=== PATIENT | female | born 1990 ===

== ENCOUNTER 2018-04-11 15:37 | Inpatient (IN) | payer MEDICARE, MEDICAID ==
[2018-04-11 15:43] VITALS: BMI 28.1
--- NOTE | 2018-04-11 16:13 | C.PDOC ---
History Of Present Illness 27 y/o F c PMHx DM p/w nausea, NBNB vomiting today. Left insulin at home in [place]. Last insulin was last night. Denies fever, chills, chest pain, dyspnea, diarrhea, dysuria, numbness, motor weakness. Time Seen by Provider: 04/11/18 15:54 Chief Complaint (Nursing): High Blood Sugar Past Medical History Vital Signs: Last Vital Signs Temp 98.4 F 04/11/18 15:41 Pulse 111 H 04/11/18 18:04 Resp 16 04/11/18 18:04 BP 96/44 L 04/11/18 18:04 Pulse Ox 100 04/11/18 18:34 Family History: States: No Known Family Hx - Social History Hx Alcohol Use: No Hx Substance Use: No - Immunization History Hx Tetanus Toxoid Vaccination: No Hx Influenza Vaccination: No Hx Pneumococcal Vaccination: No Review Of Systems Except As Marked, All Systems Reviewed And Found Negative. Constitutional: Negative for: Fever Cardiovascular: Negative for: Chest Pain Physical Exam - Physical Exam Additional Physical Exam Comments: Constitutional: Appears uncomfortable. Head: Normocephalic. Atraumatic. Eyes: PERRL. ENT: Moist mucous membranes. Neck: Supple. Cardiovascular: Tachycardic. Radial pulse 2+ bilaterally. Chest: No tenderness. Respiratory: Clear to auscultation bilaterally. GI: Soft. Nondistended. Diffuse abdominal tenderness without guarding. Back: No CVA tenderness. Musculoskeletal: No tenderness or swelling of extremities. Skin: No rash. Neurologic: Alert, no focal deficit. ED Course And Treatment - Laboratory Results Result Diagrams: 04/11/18 16:26 04/11/18 16:26 O2 Sat by Pulse Oximetry: 100 Critical Care Time - Critical Care Note Total Time (in mins): 60 Comments: Required complex decision making and ICU consultation. Documented critical care: time excludes all time spent performing seperately billable procedures. Medical Decision Making Medical Decision Making: IVF, Zofran, labs, urine, ketones CXR no acute disease. EKG Sinus rhythm, 111 bpm, no ST/T wave changes. Found to be in DKA, IVF rescus, insulin drip, Dr. Bains accepts to ICU. Disposition - Disposition Disposition: HOSPITALIZED Disposition Time: 18:30 Condition: CRITICAL Forms: [facility] ([place]) - Clinical Impression Clinical Impression: DKA (diabetic ketoacidoses)
[2018-04-11] MEDS ORDERED: Sodium Chloride 0.9% 1,000 ML IV STA ×2 (16:15→16:51)
[2018-04-11 16:30] LABS: BASO # 0.1 K/uL (0.0-0.2); BASO % 0.8 % (0.0-2.0); HEMOGLOBIN 14.9 g/dL (11.0-16.0); LYMPH % 7.5 % (20.0-40.0); MEAN CELL VOLUME 91.5 fL (81.0-99.0); MEAN CORPUSCULAR HEMOGLOBIN 30.2 pg (27.0-31.0); MEAN CORPUSCULAR HGB CONC 33.1 g/dL (33.0-37.0); MEAN PLATELET VOLUME 9.3 fL (7.2-11.7); MONO # 0.3 K/uL (0.0-0.8); NEUT # 11.6 K/uL (1.8-7.0); NEUT % 89.7 % (50.0-75.0); PLATELET COUNT 356 K/uL (130-400); RBC 4.94 Mil/uL (3.80-5.20); RED CELL DISTRIBUTION WIDTH 12.8 % (11.5-14.5); WHITE BLOOD COUNT 12.9 K/uL (4.8-10.8)
[2018-04-11 16:34] LABS: VENOUS BLOOD GAS BASE EXCESS -8.5 mmol/L (0.0-2.0); VENOUS BLOOD GAS PCO2 25 mmHg (40-60); VENOUS BLOOD GAS PO2 44 mm/Hg (30-55); VENOUS BLOOD PH 7.38 (7.32-7.43)
[2018-04-11] MEDS ORDERED: Sodium Chloride 0.9% 1,000 ML ONE (16:37)
[2018-04-11 16:43] LABS: SQUAMOUS EPITHIAL 9 /hpf (0-5); URINE BILIRUBIN NEGATIVE (NEGATIVE); URINE BLOOD NEGATIVE (NEGATIVE); URINE CLARITY Hazy (Clear); URINE COLOR Yellow (YELLOW); URINE GLUCOSE (UA) 3+ mg/dL (Normal); URINE LEUKOCYTE ESTERASE NEG Leu/uL (Negative); URINE PROTEIN NEGATIVE (NEGATIVE); URINE UROBILINOGEN NORMAL mg/dL (0.2-1.0)
[2018-04-11 16:44] LABS: HCG,QUALITATIVE URINE NEGATIVE (NEGATIVE)
[2018-04-11 16:51] LABS: ALB/GLOB RATIO 1.4 (1.0-2.1); ALBUMIN 4.7 g/dL (3.5-5.0); ALT/SGPT 21 U/L (9-52); AST/SGOT 25 U/L (14-36); BLOOD UREA NITROGEN 18 mg/dL (7-17); CALCIUM 9.7 mg/dl (8.6-10.4); GFR AFRICAN-AMERICAN > 60; GFR NON-AFRICAN AMERICAN > 60; LIPASE 36 U/L (23-300)
[2018-04-11] MEDS ORDERED: Insulin Human Regular 100 UNIT in Sodium Chloride 0.9% 99 ML IV SCH ×2 (17:00→19:00)
[2018-04-11 17:03] LABS: LYMPHOCYTE 6 % (20-40); MONOCYTE 1 % (0-10); NEUTROPHIL 93 % (50-75); PLATELET ESTIMATE NORMAL (NORMAL); TOTAL CELLS COUNTED 100
[2018-04-11] MEDS ORDERED: Sodium Chloride 0.9% 1,000 ML IV ONE (18:19)
--- NOTE | 2018-04-11 18:31 | RAD ---
Date of service: 04/11/2018 HISTORY: nausea, vomiting COMPARISON: No prior. FINDINGS: LUNGS: No active pulmonary disease. PLEURA: No significant pleural effusion identified, no pneumothorax apparent. CARDIOVASCULAR: Normal. OSSEOUS STRUCTURES: No significant abnormalities. VISUALIZED UPPER ABDOMEN: Normal. OTHER FINDINGS: None. IMPRESSION: No active disease.
--- NOTE | 2018-04-11 20:31 | CP.PCM.HP ---
<EstevanEstela L. - Last Filed: 04/12/18 01:49> History of Present Illness - History of Present Illness History of Present Illness: CC: nausea, vomiting HPI: Patient is a 27 year old female with PMHx of Type 1 Diabetes presents to the ER after 3 episodes of nausea and vomiting. Patient lives in [place] and came in town to visit her grandmother yesterday. Patient forgot to refill her Novolog Insulin Pump and ran out last night. This morning patient called multiple pharmacies to get it refilled, but by the time she was able to get the medication she was feeling dizzy and started vomiting. Patient has been admitted for DKA many times before and knew she needed to come to the ER. Patient was last admitted for DKA in August. Patient vomited once in the ED. Patient said the vomit was watery and yellow. Patient had some mild epigastric pain which has now resolved. Patient's dizziness has also resolved. Patient denies any fevers, headache, chest pain, shortness of breath, diarrhea, or constipation. Patient has had no sick contacts. PMD: in [place] PMHx: Diabetes Type 1 Psur c-sections in 2008, 2012 Famhx: Mom- Lupus, migraine; Son: asthma, Daughter: spina bifida, cauda regression syndrome Social: denies tobacco, alcohol, drugs. lives with kids and boyfriend in [place]. Stay at home mom Present on Admission - Present on Admission Any Indicators Present on Admission: No History of DVT/PE: No History of Uncontrolled Diabetes: No Urinary Catheter: No Decubitus Ulcer Present: No Review of Systems - Constitutional Constitutional: absent: Chills, Fever - EENT Eyes: absent: Blurred Vision - Cardiovascular Cardiovascular: absent: Chest Pain, Dyspnea, Edema, Palpitations - Respiratory Respiratory: absent: Dyspnea - Gastrointestinal Gastrointestinal: Abdominal Pain, Nausea, Vomiting. absent: Constipation, Diarrhea - Genitourinary Genitourinary: absent: Change in Urinary Stream - Psychiatric Psychiatric: absent: Confusion Past Patient History - Past Social History Smoking Status: Never Smoked - ENDOCRINE/METABOLIC Hx Diabetes Mellitus Type 1: Yes Other/Comment: insulin pump - PSYCHIATRIC Hx Substance Use: No - SURGICAL HISTORY Hx Section: Yes (x2) Meds Allergies/Adverse Reactions: Allergies Allergy/AdvReac Type Severity Reaction Status Date / Time fluconazole [From Diflucan] Allergy Verified 04/11/18 15:42 metoclopramide [From Reglan] Allergy Verified 04/11/18 15:42 morphine Allergy Verified 04/11/18 15:42 Penicillins Allergy Verified 04/11/18 15:42 Physical Exam - Constitutional Appears: Non-toxic, No Acute Distress - Head Exam Head Exam: ATRAUMATIC, NORMAL INSPECTION, NORMOCEPHALIC - Eye Exam Eye Exam: EOMI, Normal appearance - ENT Exam ENT Exam: Mucous Membranes Moist - Respiratory Exam Respiratory Exam: Clear to Auscultation Bilateral, NORMAL BREATHING PATTERN - Cardiovascular Exam Cardiovascular Exam: Tachycardia, +S1, +S2 - GI/Abdominal Exam GI & Abdominal Exam: Normal Bowel Sounds, Soft. absent: Tenderness - Extremities Exam Extremities exam: Positive for: normal inspection. Negative for: pedal edema, tenderness - Neurological Exam Neurological exam: Alert, Oriented x3 - Psychiatric Exam Psychiatric exam: Normal Affect, Normal Mood - Skin Skin Exam: Intact, Normal Color, Warm Results - Vital Signs Recent Vital Signs: Last Vital Signs Temp 98.4 F 04/11/18 15:41 Pulse 106 H 04/11/18 18:42 Resp 16 04/11/18 18:42 BP 100/56 L 04/11/18 18:42 Pulse Ox 100 04/11/18 18:43 - Labs Result Diagrams: 04/11/18 16:26 04/11/18 21:53 Labs: Laboratory Results - last 24 hr 04/11/18 04/11/18 04/11/18 15:47 16:26 16:26 WBC 12.9 H RBC 4.94 Hgb 14.9 Hct 45.2 MCV 91.5 MCH 30.2 MCHC 33.1 RDW 12.8 Plt Count 356 MPV 9.3 Neut % (Auto) 89.7 H Lymph % (Auto) 7.5 L Josephine % (Auto) 2.0 Eos % (Auto) 0.0 Baso % (Auto) 0.8 Neut # (Auto) 11.6 H Lymph # (Auto) 1.0 Josephine # (Auto) 0.3 Eos # (Auto) 0.0 Baso # (Auto) 0.1 Neutrophils % (Manual) 93 H Lymphocytes % (Manual) 6 L Monocytes % (Manual) 1 Platelet Estimate Normal pO2 VBG pH VBG pCO2 VBG HCO3 VBG Total CO2 VBG O2 Sat (Calc) VBG Base Excess VBG Potassium Glucose Lactate Sodium Potassium Chloride Carbon Dioxide Anion Gap BUN Creatinine Est GFR ( Amer) Est GFR (Non-Af Amer) POC Glucose (mg/dL) 324 H Random Glucose Calcium Phosphorus Magnesium Total Bilirubin AST ALT Alkaline Phosphatase Total Protein Albumin Globulin Albumin/Globulin Ratio Lipase Venous Blood Potassium Urine Color Yellow Urine Clarity Hazy Urine pH 5.0 Ur Specific [place] 1.025 Urine Protein Negative Urine Glucose (UA) 3+ H Urine Ketones 2+ H Urine Blood Negative Urine Nitrate Negative Urine Bilirubin Negative Urine Urobilinogen Normal Ur Leukocyte Esterase Neg Urine WBC (Auto) 2 Urine RBC (Auto) 1 Ur Squamous Epith Cells 9 H Urine HCG, Qual Negative B-Hydroxybutyrate 04/11/18 04/11/18 04/11/18 16:26 16:31 17:29 WBC RBC Hgb Hct MCV MCH MCHC RDW Plt Count MPV Neut % (Auto) Lymph % (Auto) Josephine % (Auto) Eos % (Auto) Baso % (Auto) Neut # (Auto) Lymph # (Auto) Josephine # (Auto) Eos # (Auto) Baso # (Auto) Neutrophils % (Manual) Lymphocytes % (Manual) Monocytes % (Manual) Platelet Estimate pO2 44 VBG pH 7.38 VBG pCO2 25 L VBG HCO3 17.8 VBG Total CO2 15.6 L VBG O2 Sat (Calc) 82.1 H VBG Base Excess -8.5 L VBG Potassium 4.5 Glucose 384 H Lactate 2.9 H Sodium 139 138.0 Potassium 4.9 Chloride 104 102.0 Carbon Dioxide 11 L* Anion Gap 30 H BUN 18 H Creatinine 0.9 Est GFR ( Amer) > 60 Est GFR (Non-Af Amer) > 60 POC Glucose (mg/dL) 397 H Random Glucose 376 H Calcium 9.7 Phosphorus 3.9 Magnesium 2.0 Total Bilirubin 1.6 H AST 25 ALT 21 Alkaline Phosphatase 100 Total Protein 8.2 Albumin 4.7 Globulin 3.4 Albumin/Globulin Ratio 1.4 Lipase 36 Venous Blood Potassium 4.5 Urine Color Urine Clarity Urine pH Ur Specific [place] Urine Protein Urine Glucose (UA) Urine Ketones Urine Blood Urine Nitrate Urine Bilirubin Urine Urobilinogen Ur Leukocyte Esterase Urine WBC (Auto) Urine RBC (Auto) Ur Squamous Epith Cells Urine HCG, Qual B-Hydroxybutyrate 4.10 H 04/11/18 04/11/18 18:30 19:46 WBC RBC Hgb Hct MCV MCH MCHC RDW Plt Count MPV Neut % (Auto) Lymph % (Auto) Josephine % (Auto) Eos % (Auto) Baso % (Auto) Neut # (Auto) Lymph # (Auto) Josephine # (Auto) Eos # (Auto) Baso # (Auto) Neutrophils % (Manual) Lymphocytes % (Manual) Monocytes % (Manual) Platelet Estimate pO2 VBG pH VBG pCO2 VBG HCO3 VBG Total CO2 VBG O2 Sat (Calc) VBG Base Excess VBG Potassium Glucose Lactate Sodium Potassium Chloride Carbon Dioxide Anion Gap BUN Creatinine Est GFR ( Amer) Est GFR (Non-Af Amer) POC Glucose (mg/dL) 296 H 211 H Random Glucose Calcium Phosphorus Magnesium Total Bilirubin AST ALT Alkaline Phosphatase Total Protein Albumin Globulin Albumin/Globulin Ratio Lipase Venous Blood Potassium Urine Color Urine Clarity Urine pH Ur Specific [place] Urine Protein Urine Glucose (UA) Urine Ketones Urine Blood Urine Nitrate Urine Bilirubin Urine Urobilinogen Ur Leukocyte Esterase Urine WBC (Auto) Urine RBC (Auto) Ur Squamous Epith Cells Urine HCG, Qual B-Hydroxybutyrate Assessment & Plan - Assessment and Plan (Free Text) Assessment: DKA admitted to ICU on arrival to ED: Blood sugar: 324 Bicarb: 11 Ketones: 4.10 VBG: pH: 7.38, bicarb 25, Glucose 384, lactate 2.9 UA: 3+ glucose, 2+ ketones repeat VBG and BMP q4h accuchecks q1h meds: Insulin Drip and NS @ 200 cc/hr Blood sugar decreased to 170, NS switched to D5 NS at 200cc/hr Patient's blood sugar decreased to 102 Insulin drip and D5 1/2 NS stopped, insulin pump restarted with basal rate of 1.6 u per hour Prophylaxis SCDs CLD Discussed with Dr. Guidry <Brian Guidry P - Last Filed: 04/12/18 04:30> Results - Vital Signs Recent Vital Signs: Last Vital Signs Temp 98 F 04/12/18 04:00 Pulse 89 04/12/18 04:00 Resp 17 04/12/18 04:00 BP 84/27 L 04/12/18 03:56 Pulse Ox 97 04/12/18 04:00 - Labs Result Diagrams: 04/11/18 16:26 04/12/18 02:02 Labs: Laboratory Results - last 24 hr 04/11/18 04/11/18 04/11/18 15:47 16:26 16:26 WBC 12.9 H RBC 4.94 Hgb 14.9 Hct 45.2 MCV 91.5 MCH 30.2 MCHC 33.1 RDW 12.8 Plt Count 356 MPV 9.3 Neut % (Auto) 89.7 H Lymph % (Auto) 7.5 L Josephine % (Auto) 2.0 Eos % (Auto) 0.0 Baso % (Auto) 0.8 Neut # (Auto) 11.6 H Lymph # (Auto) 1.0 Josephine # (Auto) 0.3 Eos # (Auto) 0.0 Baso # (Auto) 0.1 Neutrophils % (Manual) 93 H Lymphocytes % (Manual) 6 L Monocytes % (Manual) 1 Platelet Estimate Normal pO2 VBG pH VBG pCO2 VBG HCO3 VBG Total CO2 VBG O2 Sat (Calc) VBG Base Excess VBG Potassium Glucose Lactate Sodium Potassium Chloride Carbon Dioxide Anion Gap BUN Creatinine Est GFR ( Amer) Est GFR (Non-Af Amer) POC Glucose (mg/dL) 324 H Random Glucose Calcium Phosphorus Magnesium Total Bilirubin AST ALT Alkaline Phosphatase Total Protein Albumin Globulin Albumin/Globulin Ratio Lipase Venous Blood Potassium Urine Color Yellow Urine Clarity Hazy Urine pH 5.0 Ur Specific [place] 1.025 Urine Protein Negative Urine Glucose (UA) 3+ H Urine Ketones 2+ H Urine Blood Negative Urine Nitrate Negative Urine Bilirubin Negative Urine Urobilinogen Normal Ur Leukocyte Esterase Neg Urine WBC (Auto) 2 Urine RBC (Auto) 1 Ur Squamous Epith Cells 9 H Urine HCG, Qual Negative B-Hydroxybutyrate 04/11/18 04/11/18 04/11/18 16:26 16:31 17:29 WBC RBC Hgb Hct MCV MCH MCHC RDW Plt Count MPV Neut % (Auto) Lymph % (Auto) Josephine % (Auto) Eos % (Auto) Baso % (Auto) Neut # (Auto) Lymph # (Auto) Josephine # (Auto) Eos # (Auto) Baso # (Auto) Neutrophils % (Manual) Lymphocytes % (Manual) Monocytes % (Manual) Platelet Estimate pO2 44 VBG pH 7.38 VBG pCO2 25 L VBG HCO3 17.8 VBG Total CO2 15.6 L VBG O2 Sat (Calc) 82.1 H VBG Base Excess -8.5 L VBG Potassium 4.5 Glucose 384 H Lactate 2.9 H Sodium 139 138.0 Potassium 4.9 Chloride 104 102.0 Carbon Dioxide 11 L* Anion Gap 30 H BUN 18 H Creatinine 0.9 Est GFR ( Amer) > 60 Est GFR (Non-Af Amer) > 60 POC Glucose (mg/dL) 397 H Random Glucose 376 H Calcium 9.7 Phosphorus 3.9 Magnesium 2.0 Total Bilirubin 1.6 H AST 25 ALT 21 Alkaline Phosphatase 100 Total Protein 8.2 Albumin 4.7 Globulin 3.4 Albumin/Globulin Ratio 1.4 Lipase 36 Venous Blood Potassium 4.5 Urine Color Urine Clarity Urine pH Ur Specific [place] Urine Protein Urine Glucose (UA) Urine Ketones Urine Blood Urine Nitrate Urine Bilirubin Urine Urobilinogen Ur Leukocyte Esterase Urine WBC (Auto) Urine RBC (Auto) Ur Squamous Epith Cells Urine HCG, Qual B-Hydroxybutyrate 4.10 H 04/11/18 04/11/18 04/11/18 18:30 19:46 20:41 WBC RBC Hgb Hct MCV MCH MCHC RDW Plt Count MPV Neut % (Auto) Lymph % (Auto) Josephine % (Auto) Eos % (Auto) Baso % (Auto) Neut # (Auto) Lymph # (Auto) Josephine # (Auto) Eos # (Auto) Baso # (Auto) Neutrophils % (Manual) Lymphocytes % (Manual) Monocytes % (Manual) Platelet Estimate pO2 VBG pH VBG pCO2 VBG HCO3 VBG Total CO2 VBG O2 Sat (Calc) VBG Base Excess VBG Potassium Glucose Lactate Sodium Potassium Chloride Carbon Dioxide Anion Gap BUN Creatinine Est GFR ( Amer) Est GFR (Non-Af Amer) POC Glucose (mg/dL) 296 H 211 H 170 H Random Glucose Calcium Phosphorus Magnesium Total Bilirubin AST ALT Alkaline Phosphatase Total Protein Albumin Globulin Albumin/Globulin Ratio Lipase Venous Blood Potassium Urine Color Urine Clarity Urine pH Ur Specific [place] Urine Protein Urine Glucose (UA) Urine Ketones Urine Blood Urine Nitrate Urine Bilirubin Urine Urobilinogen Ur Leukocyte Esterase Urine WBC (Auto) Urine RBC (Auto) Ur Squamous Epith Cells Urine HCG, Qual B-Hydroxybutyrate 04/11/18 04/11/18 04/11/18 21:49 21:53 21:55 WBC RBC Hgb Hct MCV MCH MCHC RDW Plt Count MPV Neut % (Auto) Lymph % (Auto) Josephine % (Auto) Eos % (Auto) Baso % (Auto) Neut # (Auto) Lymph # (Auto) Josephine # (Auto) Eos # (Auto) Baso # (Auto) Neutrophils % (Manual) Lymphocytes % (Manual) Monocytes % (Manual) Platelet Estimate pO2 27 L VBG pH 7.27 L VBG pCO2 33 L VBG HCO3 15.1 VBG Total CO2 16.2 L VBG O2 Sat (Calc) 55.2 VBG Base Excess -10.6 L VBG Potassium 4.1 Glucose 168 H Lactate 1.2 Sodium 141 139.0 Potassium 4.1 Chloride 114 H 112.0 H Carbon Dioxide 13 L Anion Gap 18 BUN 17 Creatinine 0.7 Est GFR ( Amer) > 60 Est GFR (Non-Af Amer) > 60 POC Glucose (mg/dL) 102 Random Glucose 167 H Calcium 7.1 L Phosphorus Magnesium Total Bilirubin AST ALT Alkaline Phosphatase Total Protein Albumin Globulin Albumin/Globulin Ratio Lipase Venous Blood Potassium 4.1 Urine Color Urine Clarity Urine pH Ur Specific [place] Urine Protein Urine Glucose (UA) Urine Ketones Urine Blood Urine Nitrate Urine Bilirubin Urine Urobilinogen Ur Leukocyte Esterase Urine WBC (Auto) Urine RBC (Auto) Ur Squamous Epith Cells Urine HCG, Qual B-Hydroxybutyrate 04/12/18 04/12/18 04/12/18 00:14 01:42 01:58 WBC RBC Hgb Hct MCV MCH MCHC RDW Plt Count MPV Neut % (Auto) Lymph % (Auto) Josephine % (Auto) Eos % (Auto) Baso % (Auto) Neut # (Auto) Lymph # (Auto) Josephine # (Auto) Eos # (Auto) Baso # (Auto) Neutrophils % (Manual) Lymphocytes % (Manual) Monocytes % (Manual) Platelet Estimate pO2 51 VBG pH 7.27 L VBG pCO2 26 L VBG HCO3 14.1 VBG Total CO2 12.7 L VBG O2 Sat (Calc) 85.9 H VBG Base Excess -13.3 L VBG Potassium 3.9 Glucose 324 H Lactate 1.3 Sodium 139.0 Potassium Chloride 111.0 H Carbon Dioxide Anion Gap BUN Creatinine Est GFR ( Amer) Est GFR (Non-Af Amer) POC Glucose (mg/dL) 286 H 219 H Random Glucose Calcium Phosphorus Magnesium Total Bilirubin AST ALT Alkaline Phosphatase Total Protein Albumin Globulin Albumin/Globulin Ratio Lipase Venous Blood Potassium 3.9 Urine Color Urine Clarity Urine pH Ur Specific [place] Urine Protein Urine Glucose (UA) Urine Ketones Urine Blood Urine Nitrate Urine Bilirubin Urine Urobilinogen Ur Leukocyte Esterase Urine WBC (Auto) Urine RBC (Auto) Ur Squamous Epith Cells Urine HCG, Qual B-Hydroxybutyrate 04/12/18 02:02 WBC RBC Hgb Hct MCV MCH MCHC RDW Plt Count MPV Neut % (Auto) Lymph % (Auto) Josephine % (Auto) Eos % (Auto) Baso % (Auto) Neut # (Auto) Lymph # (Auto) Josephine # (Auto) Eos # (Auto) Baso # (Auto) Neutrophils % (Manual) Lymphocytes % (Manual) Monocytes % (Manual) Platelet Estimate pO2 VBG pH VBG pCO2 VBG HCO3 VBG Total CO2 VBG O2 Sat (Calc) VBG Base Excess VBG Potassium Glucose Lactate Sodium 139 Potassium 4.9 Chloride 110 H Carbon Dioxide 12 L Anion Gap 22 H BUN 16 Creatinine 0.8 Est GFR ( Amer) > 60 Est GFR (Non-Af Amer) > 60 POC Glucose (mg/dL) Random Glucose 236 H Calcium 7.8 L Phosphorus Magnesium Total Bilirubin AST ALT Alkaline Phosphatase Total Protein Albumin Globulin Albumin/Globulin Ratio Lipase Venous Blood Potassium Urine Color Urine Clarity Urine pH Ur Specific [place] Urine Protein Urine Glucose (UA) Urine Ketones Urine Blood Urine Nitrate Urine Bilirubin Urine Urobilinogen Ur Leukocyte Esterase Urine WBC (Auto) Urine RBC (Auto) Ur Squamous Epith Cells Urine HCG, Qual B-Hydroxybutyrate Attending/Attestation - Attestation I have personally seen and examined this patient.: Yes I have fully participated in the care of the patient.: Yes I have reviewed all pertinent clinical information: Yes Notes (Text): 04/12/18 04:28 Precipitation of early DKA due to inability to timely refill insulin pump with correction of AG, still low bicarb probably from saline boluses, restarted insulin pump with accucheck every 2 hr and am labs to confirm maintained correction, patient clinically not struggling to maintain ph, which has normalized.
[2018-04-11] MEDS ORDERED: Dextrose 5%/0.9% NS 1,000 ML IV SCH (21:30)
--- NOTE | 2018-04-11 21:37 | CP.PCM.CON ---
<Estela Barreto - Last Filed: 04/12/18 01:50> History of Present Illness - History of Present Illness History of Present Illness: PGY2 ICU Consult Note for Dr. Patino CC: nausea, vomiting HPI: Patient is a 27 year old female with PMHx of Type 1 Diabetes presents to the ER after 3 episodes of nausea and vomiting. Patient lives in [place] and came in town to visit her grandmother yesterday. Patient forgot to refill her Novolog Insulin Pump and ran out last night. This morning patient called multiple pharmacies to get it refilled, but by the time she was able to get the medication she was feeling dizzy and started vomiting. Patient has been admitted for DKA many times before and knew she needed to come to the ER. Patient was last admitted for DKA in August. Patient vomited once in the ED. Patient said the vomit was watery and yellow. Patient had some mild epigastric pain which has now resolved. Patient's dizziness has also resolved. Patient denies any fevers, headache, chest pain, shortness of breath, diarrhea, or constipation. Patient has had no sick contacts. PMD: in [place] PMHx: Diabetes Type 1 Psur c-sections in 2008, 2012 Famhx: Mom- Lupus, migraine; Son: asthma, Daughter: spina bifida, cauda regression syndrome Social: denies tobacco, alcohol, drugs. lives with kids and boyfriend in [place]. Stay at home mom Review of Systems - Constitutional Constitutional: absent: Chills, Fever - EENT Eyes: absent: Blurred Vision - Cardiovascular Cardiovascular: absent: Chest Pain, Dyspnea - Respiratory Respiratory: absent: Dyspnea - Gastrointestinal Gastrointestinal: Abdominal Pain, Nausea, Vomiting. absent: Constipation, Diarrhea - Genitourinary Genitourinary: absent: Dysuria - Musculoskeletal Musculoskeletal: absent: Numbness, Tingling - Integumentary Integumentary: absent: Rash Past Patient History - Past Social History Smoking Status: Never Smoked - ENDOCRINE/METABOLIC Hx Diabetes Mellitus Type 1: Yes Other/Comment: insulin pump - PSYCHIATRIC Hx Substance Use: No - SURGICAL HISTORY Hx Section: Yes (x2) Meds Allergies/Adverse Reactions: Allergies Allergy/AdvReac Type Severity Reaction Status Date / Time fluconazole [From Diflucan] Allergy Verified 04/11/18 15:42 metoclopramide [From Reglan] Allergy Verified 04/11/18 15:42 morphine Allergy Verified 04/11/18 15:42 Penicillins Allergy Verified 04/11/18 15:42 - Medications Medications: Current Medications Sodium Chloride (Sodium Chloride 0.9%) 1,000 mls @ 200 mls/hr IV .Q5H ONE Stop: 04/11/18 23:18 Last Admin: 04/11/18 18:36 Dose: 200 mls/hr Insulin Human Regular 100 unit (/ Sodium Chloride) 100 mls @ 6 mls/hr IV .[id number] [facility] PRN Reason: Protocol Last Titration: 04/11/18 21:18 Dose: 4 units/hr, 4 mls/hr Dextrose/Sodium Chloride (Dextrose 5%/0.9% Ns 1000 Ml) 1,000 mls @ 200 mls/hr IV .Q5H [facility] Last Admin: 04/11/18 21:26 Dose: 200 mls/hr Physical Exam - Head Exam Head Exam: ATRAUMATIC, NORMAL INSPECTION, NORMOCEPHALIC - Eye Exam Eye Exam: EOMI, Normal appearance - Respiratory Exam Respiratory Exam: Clear to Auscultation Bilateral, NORMAL BREATHING PATTERN. absent: Rales, Rhonchi, Wheezes - Cardiovascular Exam Cardiovascular Exam: Tachycardia, +S1, +S2 - GI/Abdominal Exam GI & Abdominal Exam: Normal Bowel Sounds, Soft. absent: Tenderness - Extremities Exam Extremities exam: Positive for: normal inspection. Negative for: tenderness - Back Exam Back exam: NORMAL INSPECTION - Neurological Exam Neurological exam: Alert, CN II-XII Intact, Oriented x3 Results - Vital Signs Recent Vital Signs: Last Vital Signs Temp 98.4 F 04/11/18 15:41 Pulse 106 H 04/11/18 18:42 Resp 16 04/11/18 18:42 BP 100/56 L 04/11/18 18:42 Pulse Ox 100 04/11/18 18:43 - Labs Result Diagrams: 04/11/18 16:26 04/11/18 21:53 Labs: Laboratory Results - last 24 hr 04/11/18 04/11/18 04/11/18 15:47 16:26 16:26 WBC 12.9 H RBC 4.94 Hgb 14.9 Hct 45.2 MCV 91.5 MCH 30.2 MCHC 33.1 RDW 12.8 Plt Count 356 MPV 9.3 Neut % (Auto) 89.7 H Lymph % (Auto) 7.5 L [place] % (Auto) 2.0 Eos % (Auto) 0.0 Baso % (Auto) 0.8 Neut # (Auto) 11.6 H Lymph # (Auto) 1.0 [place] # (Auto) 0.3 Eos # (Auto) 0.0 Baso # (Auto) 0.1 Neutrophils % (Manual) 93 H Lymphocytes % (Manual) 6 L Monocytes % (Manual) 1 Platelet Estimate Normal pO2 VBG pH VBG pCO2 VBG HCO3 VBG Total CO2 VBG O2 Sat (Calc) VBG Base Excess VBG Potassium Glucose Lactate Sodium Potassium Chloride Carbon Dioxide Anion Gap BUN Creatinine Est GFR ( Amer) Est GFR (Non-Af Amer) POC Glucose (mg/dL) 324 H Random Glucose Calcium Phosphorus Magnesium Total Bilirubin AST ALT Alkaline Phosphatase Total Protein Albumin Globulin Albumin/Globulin Ratio Lipase Venous Blood Potassium Urine Color Yellow Urine Clarity Hazy Urine pH 5.0 Ur Specific [employer] 1.025 Urine Protein Negative Urine Glucose (UA) 3+ H Urine Ketones 2+ H Urine Blood Negative Urine Nitrate Negative Urine Bilirubin Negative Urine Urobilinogen Normal Ur Leukocyte Esterase Neg Urine WBC (Auto) 2 Urine RBC (Auto) 1 Ur Squamous Epith Cells 9 H Urine HCG, Qual Negative B-Hydroxybutyrate 04/11/18 04/11/18 04/11/18 16:26 16:31 17:29 WBC RBC Hgb Hct MCV MCH MCHC RDW Plt Count MPV Neut % (Auto) Lymph % (Auto) [place] % (Auto) Eos % (Auto) Baso % (Auto) Neut # (Auto) Lymph # (Auto) [place] # (Auto) Eos # (Auto) Baso # (Auto) Neutrophils % (Manual) Lymphocytes % (Manual) Monocytes % (Manual) Platelet Estimate pO2 44 VBG pH 7.38 VBG pCO2 25 L VBG HCO3 17.8 VBG Total CO2 15.6 L VBG O2 Sat (Calc) 82.1 H VBG Base Excess -8.5 L VBG Potassium 4.5 Glucose 384 H Lactate 2.9 H Sodium 139 138.0 Potassium 4.9 Chloride 104 102.0 Carbon Dioxide 11 L* Anion Gap 30 H BUN 18 H Creatinine 0.9 Est GFR ( Amer) > 60 Est GFR (Non-Af Amer) > 60 POC Glucose (mg/dL) 397 H Random Glucose 376 H Calcium 9.7 Phosphorus 3.9 Magnesium 2.0 Total Bilirubin 1.6 H AST 25 ALT 21 Alkaline Phosphatase 100 Total Protein 8.2 Albumin 4.7 Globulin 3.4 Albumin/Globulin Ratio 1.4 Lipase 36 Venous Blood Potassium 4.5 Urine Color Urine Clarity Urine pH Ur Specific [employer] Urine Protein Urine Glucose (UA) Urine Ketones Urine Blood Urine Nitrate Urine Bilirubin Urine Urobilinogen Ur Leukocyte Esterase Urine WBC (Auto) Urine RBC (Auto) Ur Squamous Epith Cells Urine HCG, Qual B-Hydroxybutyrate 4.10 H 04/11/18 04/11/18 18:30 19:46 WBC RBC Hgb Hct MCV MCH MCHC RDW Plt Count MPV Neut % (Auto) Lymph % (Auto) [place] % (Auto) Eos % (Auto) Baso % (Auto) Neut # (Auto) Lymph # (Auto) [place] # (Auto) Eos # (Auto) Baso # (Auto) Neutrophils % (Manual) Lymphocytes % (Manual) Monocytes % (Manual) Platelet Estimate pO2 VBG pH VBG pCO2 VBG HCO3 VBG Total CO2 VBG O2 Sat (Calc) VBG Base Excess VBG Potassium Glucose Lactate Sodium Potassium Chloride Carbon Dioxide Anion Gap BUN Creatinine Est GFR ( Amer) Est GFR (Non-Af Amer) POC Glucose (mg/dL) 296 H 211 H Random Glucose Calcium Phosphorus Magnesium Total Bilirubin AST ALT Alkaline Phosphatase Total Protein Albumin Globulin Albumin/Globulin Ratio Lipase Venous Blood Potassium Urine Color Urine Clarity Urine pH Ur Specific [employer] Urine Protein Urine Glucose (UA) Urine Ketones Urine Blood Urine Nitrate Urine Bilirubin Urine Urobilinogen Ur Leukocyte Esterase Urine WBC (Auto) Urine RBC (Auto) Ur Squamous Epith Cells Urine HCG, Qual B-Hydroxybutyrate Assessment & Plan - Assessment and Plan (Free Text) Assessment: DKA admitted to ICU on arrival to ED: Blood sugar: 324 Bicarb: 11 Ketones: 4.10 VBG: pH: 7.38, bicarb 25, Glucose 384, lactate 2.9 UA: 3+ glucose, 2+ ketones repeat VBG and BMP q4h accuchecks q1h f/u HgA1C meds: Insulin Drip and NS @ 200 cc/hr Blood sugar decreased to 170, NS switched to D5 NS at 200cc/hr Patient's blood sugar decreased to 102 Insulin drip and D5 1/2 NS stopped, insulin pump restarted with basal rate of 1.6 u per hour Prophylaxis SCDs CLD <LatefGerardo - Last Filed: 04/12/18 07:44> Results - Vital Signs Recent Vital Signs: Last Vital Signs Temp 98.1 F 04/12/18 06:00 Pulse 89 04/12/18 04:00 Resp 17 04/12/18 04:00 BP 84/27 L 04/12/18 03:56 Pulse Ox 97 04/12/18 04:00 - Labs Result Diagrams: 04/12/18 05:29 04/12/18 05:29 Labs: Laboratory Results - last 24 hr 04/11/18 04/11/18 04/11/18 15:47 16:26 16:26 WBC 12.9 H RBC 4.94 Hgb 14.9 Hct 45.2 MCV 91.5 MCH 30.2 MCHC 33.1 RDW 12.8 Plt Count 356 MPV 9.3 Neut % (Auto) 89.7 H Lymph % (Auto) 7.5 L [place] % (Auto) 2.0 Eos % (Auto) 0.0 Baso % (Auto) 0.8 Neut # (Auto) 11.6 H Lymph # (Auto) 1.0 [place] # (Auto) 0.3 Eos # (Auto) 0.0 Baso # (Auto) 0.1 Neutrophils % (Manual) 93 H Lymphocytes % (Manual) 6 L Monocytes % (Manual) 1 Platelet Estimate Normal pO2 VBG pH VBG pCO2 VBG HCO3 VBG Total CO2 VBG O2 Sat (Calc) VBG Base Excess VBG Potassium Glucose Lactate Sodium Potassium Chloride Carbon Dioxide Anion Gap BUN Creatinine Est GFR ( Amer) Est GFR (Non-Af Amer) POC Glucose (mg/dL) 324 H Random Glucose Hemoglobin A1c Calcium Phosphorus Magnesium Total Bilirubin AST ALT Alkaline Phosphatase Total Protein Albumin Globulin Albumin/Globulin Ratio Lipase Venous Blood Potassium Urine Color Yellow Urine Clarity Hazy Urine pH 5.0 Ur Specific [employer] 1.025 Urine Protein Negative Urine Glucose (UA) 3+ H Urine Ketones 2+ H Urine Blood Negative Urine Nitrate Negative Urine Bilirubin Negative Urine Urobilinogen Normal Ur Leukocyte Esterase Neg Urine WBC (Auto) 2 Urine RBC (Auto) 1 Ur Squamous Epith Cells 9 H Urine HCG, Qual Negative B-Hydroxybutyrate 0804/11/18 04/11/18 16:26 16:31 17:29 WBC RBC Hgb Hct MCV MCH MCHC RDW Plt Count MPV Neut % (Auto) Lymph % (Auto) [place] % (Auto) Eos % (Auto) Baso % (Auto) Neut # (Auto) Lymph # (Auto) [place] # (Auto) Eos # (Auto) Baso # (Auto) Neutrophils % (Manual) Lymphocytes % (Manual) Monocytes % (Manual) Platelet Estimate pO2 44 VBG pH 7.38 VBG pCO2 25 L VBG HCO3 17.8 VBG Total CO2 15.6 L VBG O2 Sat (Calc) 82.1 H VBG Base Excess -8.5 L VBG Potassium 4.5 Glucose 384 H Lactate 2.9 H Sodium 139 138.0 Potassium 4.9 Chloride 104 102.0 Carbon Dioxide 11 L* Anion Gap 30 H BUN 18 H Creatinine 0.9 Est GFR ( Amer) > 60 Est GFR (Non-Af Amer) > 60 POC Glucose (mg/dL) 397 H Random Glucose 376 H Hemoglobin A1c Calcium 9.7 Phosphorus 3.9 Magnesium 2.0 Total Bilirubin 1.6 H AST 25 ALT 21 Alkaline Phosphatase 100 Total Protein 8.2 Albumin 4.7 Globulin 3.4 Albumin/Globulin Ratio 1.4 Lipase 36 Venous Blood Potassium 4.5 Urine Color Urine Clarity Urine pH Ur Specific [employer] Urine Protein Urine Glucose (UA) Urine Ketones Urine Blood Urine Nitrate Urine Bilirubin Urine Urobilinogen Ur Leukocyte Esterase Urine WBC (Auto) Urine RBC (Auto) Ur Squamous Epith Cells Urine HCG, Qual B-Hydroxybutyrate 4.10 H 04/11/18 04/11/18 04/11/18 18:30 19:46 20:41 WBC RBC Hgb Hct MCV MCH MCHC RDW Plt Count MPV Neut % (Auto) Lymph % (Auto) [place] % (Auto) Eos % (Auto) Baso % (Auto) Neut # (Auto) Lymph # (Auto) [place] # (Auto) Eos # (Auto) Baso # (Auto) Neutrophils % (Manual) Lymphocytes % (Manual) Monocytes % (Manual) Platelet Estimate pO2 VBG pH VBG pCO2 VBG HCO3 VBG Total CO2 VBG O2 Sat (Calc) VBG Base Excess VBG Potassium Glucose Lactate Sodium Potassium Chloride Carbon Dioxide Anion Gap BUN Creatinine Est GFR ( Amer) Est GFR (Non-Af Amer) POC Glucose (mg/dL) 296 H 211 H 170 H Random Glucose Hemoglobin A1c Calcium Phosphorus Magnesium Total Bilirubin AST ALT Alkaline Phosphatase Total Protein Albumin Globulin Albumin/Globulin Ratio Lipase Venous Blood Potassium Urine Color Urine Clarity Urine pH Ur Specific [employer] Urine Protein Urine Glucose (UA) Urine Ketones Urine Blood Urine Nitrate Urine Bilirubin Urine Urobilinogen Ur Leukocyte Esterase Urine WBC (Auto) Urine RBC (Auto) Ur Squamous Epith Cells Urine HCG, Qual B-Hydroxybutyrate 04/11/18 04/11/18 04/11/18 21:49 21:53 21:55 WBC RBC Hgb Hct MCV MCH MCHC RDW Plt Count MPV Neut % (Auto) Lymph % (Auto) [place] % (Auto) Eos % (Auto) Baso % (Auto) Neut # (Auto) Lymph # (Auto) [place] # (Auto) Eos # (Auto) Baso # (Auto) Neutrophils % (Manual) Lymphocytes % (Manual) Monocytes % (Manual) Platelet Estimate pO2 27 L VBG pH 7.27 L VBG pCO2 33 L VBG HCO3 15.1 VBG Total CO2 16.2 L VBG O2 Sat (Calc) 55.2 VBG Base Excess -10.6 L VBG Potassium 4.1 Glucose 168 H Lactate 1.2 Sodium 141 139.0 Potassium 4.1 Chloride 114 H 112.0 H Carbon Dioxide 13 L Anion Gap 18 BUN 17 Creatinine 0.7 Est GFR ( Amer) > 60 Est GFR (Non-Af Amer) > 60 POC Glucose (mg/dL) 102 Random Glucose 167 H Hemoglobin A1c Calcium 7.1 L Phosphorus Magnesium Total Bilirubin AST ALT Alkaline Phosphatase Total Protein Albumin Globulin Albumin/Globulin Ratio Lipase Venous Blood Potassium 4.1 Urine Color Urine Clarity Urine pH Ur Specific [employer] Urine Protein Urine Glucose (UA) Urine Ketones Urine Blood Urine Nitrate Urine Bilirubin Urine Urobilinogen Ur Leukocyte Esterase Urine WBC (Auto) Urine RBC (Auto) Ur Squamous Epith Cells Urine HCG, Qual B-Hydroxybutyrate 04/12/18 04/12/18 04/12/18 00:14 01:42 01:58 WBC RBC Hgb Hct MCV MCH MCHC RDW Plt Count MPV Neut % (Auto) Lymph % (Auto) [place] % (Auto) Eos % (Auto) Baso % (Auto) Neut # (Auto) Lymph # (Auto) [place] # (Auto) Eos # (Auto) Baso # (Auto) Neutrophils % (Manual) Lymphocytes % (Manual) Monocytes % (Manual) Platelet Estimate pO2 51 VBG pH 7.27 L VBG pCO2 26 L VBG HCO3 14.1 VBG Total CO2 12.7 L VBG O2 Sat (Calc) 85.9 H VBG Base Excess -13.3 L VBG Potassium 3.9 Glucose 324 H Lactate 1.3 Sodium 139.0 Potassium Chloride 111.0 H Carbon Dioxide Anion Gap BUN Creatinine Est GFR ( Amer) Est GFR (Non-Af Amer) POC Glucose (mg/dL) 286 H 219 H Random Glucose Hemoglobin A1c Calcium Phosphorus Magnesium Total Bilirubin AST ALT Alkaline Phosphatase Total Protein Albumin Globulin Albumin/Globulin Ratio Lipase Venous Blood Potassium 3.9 Urine Color Urine Clarity Urine pH Ur Specific [employer] Urine Protein Urine Glucose (UA) Urine Ketones Urine Blood Urine Nitrate Urine Bilirubin Urine Urobilinogen Ur Leukocyte Esterase Urine WBC (Auto) Urine RBC (Auto) Ur Squamous Epith Cells Urine HCG, Qual B-Hydroxybutyrate 04/12/18 04/12/18 04/12/18 02:02 05:00 05:29 WBC RBC Hgb Hct MCV MCH MCHC RDW Plt Count MPV Neut % (Auto) Lymph % (Auto) [place] % (Auto) Eos % (Auto) Baso % (Auto) Neut # (Auto) Lymph # (Auto) [place] # (Auto) Eos # (Auto) Baso # (Auto) Neutrophils % (Manual) Lymphocytes % (Manual) Monocytes % (Manual) Platelet Estimate pO2 46 VBG pH 7.30 L VBG pCO2 36 L VBG HCO3 18.2 VBG Total CO2 18.8 L VBG O2 Sat (Calc) 84.4 H VBG Base Excess -7.9 L VBG Potassium 3.6 Glucose 110 H Lactate 0.7 Sodium 139 138.0 138 Potassium 4.9 3.9 Chloride 110 H 110.0 H 112 H Carbon Dioxide 12 L 15 L Anion Gap 22 H 15 BUN 16 16 Creatinine 0.8 0.7 Est GFR ( Amer) > 60 > 60 Est GFR (Non-Af Amer) > 60 > 60 POC Glucose (mg/dL) Random Glucose 236 H 115 H Hemoglobin A1c Calcium 7.8 L 8.0 L Phosphorus 2.7 Magnesium 1.9 Total Bilirubin 1.2 AST 15 ALT 26 Alkaline Phosphatase 57 Total Protein 5.8 L Albumin 3.1 L D Globulin 2.7 Albumin/Globulin Ratio 1.2 Lipase Venous Blood Potassium 3.6 Urine Color Urine Clarity Urine pH Ur Specific [employer] Urine Protein Urine Glucose (UA) Urine Ketones Urine Blood Urine Nitrate Urine Bilirubin Urine Urobilinogen Ur Leukocyte Esterase Urine WBC (Auto) Urine RBC (Auto) Ur Squamous Epith Cells Urine HCG, Qual B-Hydroxybutyrate 04/12/18 04/12/18 05:29 05:29 WBC 12.5 H RBC 3.87 Hgb 12.2 D Hct 35.2 MCV 91.0 MCH 31.5 H MCHC 34.7 RDW 13.0 Plt Count 263 MPV 7.9 Neut % (Auto) 65.4 Lymph % (Auto) 22.4 [place] % (Auto) 11.2 H Eos % (Auto) 0.4 Baso % (Auto) 0.6 Neut # (Auto) 8.2 H Lymph # (Auto) 2.8 [place] # (Auto) 1.4 H Eos # (Auto) 0.1 Baso # (Auto) 0.1 Neutrophils % (Manual) Lymphocytes % (Manual) Monocytes % (Manual) Platelet Estimate pO2 VBG pH VBG pCO2 VBG HCO3 VBG Total CO2 VBG O2 Sat (Calc) VBG Base Excess VBG Potassium Glucose Lactate Sodium Potassium Chloride Carbon Dioxide Anion Gap BUN Creatinine Est GFR ( Amer) Est GFR (Non-Af Amer) POC Glucose (mg/dL) Random Glucose Hemoglobin A1c 8.6 H Calcium Phosphorus Magnesium Total Bilirubin AST ALT Alkaline Phosphatase Total Protein Albumin Globulin Albumin/Globulin Ratio Lipase Venous Blood Potassium Urine Color Urine Clarity Urine pH Ur Specific [employer] Urine Protein Urine Glucose (UA) Urine Ketones Urine Blood Urine Nitrate Urine Bilirubin Urine Urobilinogen Ur Leukocyte Esterase Urine WBC (Auto) Urine RBC (Auto) Ur Squamous Epith Cells Urine HCG, Qual B-Hydroxybutyrate Attending/Attestation - Attestation I have personally seen and examined this patient.: Yes I have fully participated in the care of the patient.: Yes I have reviewed all pertinent clinical information: Yes Notes (Text): 04/12/18 07:42 The Patient was seen and examined at the bedside, Medical records reviewed, and management issues were discussed and formulated with the house staff. I have reviewed all the relevant clinical, laboratory, hemodynamic, radiographic data and medications Events reviewed Pain issues, skin care, head of the bed elevation, glycemic control were addressed. Agree with above resident's assessment and treatment plans of care as transcribed in Dr. Barreto's note. Aggressive IV fluid replacement with Isotonic saline insulin drip at 2U /U till AG closed Will change to D5NS since BG < 250 mg /dL Check Alcohol level, u tox Restart Home medications, Insulin Pump Code status: Full code Total critical care time 38 minutes
[2018-04-11 22:00] LABS: VENOUS BLOOD GAS BASE EXCESS -10.6 mmol/L (0.0-2.0); VENOUS BLOOD GAS PCO2 33 mmHg (40-60); VENOUS BLOOD GAS PO2 27 mm/Hg (30-55); VENOUS BLOOD PH 7.27 (7.32-7.43)
[2018-04-11 22:20] LABS: BLOOD UREA NITROGEN 17 mg/dL (7-17); CALCIUM 7.1 mg/dl (8.6-10.4); GFR AFRICAN-AMERICAN > 60; GFR NON-AFRICAN AMERICAN > 60
[2018-04-12 01:47] LABS: VENOUS BLOOD GAS BASE EXCESS -13.3 mmol/L (0.0-2.0); VENOUS BLOOD GAS PCO2 26 mmHg (40-60); VENOUS BLOOD GAS PO2 51 mm/Hg (30-55); VENOUS BLOOD PH 7.27 (7.32-7.43)
[2018-04-12 02:29] LABS: CALCIUM 7.8 mg/dl (8.6-10.4); GFR AFRICAN-AMERICAN > 60; GFR NON-AFRICAN AMERICAN > 60
[2018-04-12 02:31] LABS: BLOOD UREA NITROGEN 16 mg/dL (7-17)
[2018-04-12 04:06] VITALS: RESP 17
[2018-04-12 05:32] LABS: VENOUS BLOOD GAS BASE EXCESS -7.9 mmol/L (0.0-2.0); VENOUS BLOOD GAS PCO2 36 mmHg (40-60); VENOUS BLOOD GAS PO2 46 mm/Hg (30-55)
[2018-04-12 05:34] LABS: BASO # 0.1 K/uL (0.0-0.2); BASO % 0.6 % (0.0-2.0); EOS # 0.1 K/uL (0.0-0.7); EOS % 0.4 % (0.0-4.0); HEMOGLOBIN 12.2 g/dL (11.0-16.0); LYMPH # 2.8 K/uL (1.0-4.3); LYMPH % 22.4 % (20.0-40.0); MEAN CORPUSCULAR HEMOGLOBIN 31.5 pg (27.0-31.0); MEAN CORPUSCULAR HGB CONC 34.7 g/dL (33.0-37.0); MEAN PLATELET VOLUME 7.9 fL (7.2-11.7); MONO # 1.4 K/uL (0.0-0.8); MONO % 11.2 % (0.0-10.0); NEUT # 8.2 K/uL (1.8-7.0); NEUT % 65.4 % (50.0-75.0); NRBC % 0.1 % (0.0-2.0); RBC 3.87 Mil/uL (3.80-5.20); WHITE BLOOD COUNT 12.5 K/uL (4.8-10.8)
[2018-04-12 05:52] LABS: ALB/GLOB RATIO 1.2 (1.0-2.1); ALBUMIN 3.1 g/dL (3.5-5.0); ALT/SGPT 26 U/L (9-52); AST/SGOT 15 U/L (14-36); BLOOD UREA NITROGEN 16 mg/dL (7-17); GFR AFRICAN-AMERICAN > 60; GFR NON-AFRICAN AMERICAN > 60
--- NOTE | 2018-04-12 08:27 | CP.PCM.PN ---
Subjective - Date & Time of Evaluation Date of Evaluation: 04/12/18 Time of Evaluation: 08:00 - Subjective Subjective: Hospitalist Progress Note Patient was seen and examined at 8:00 AM 04/12/18 ICU Bed 17 27 year old female admitted to the ICU on night of 04/11/18 for DKA. She was restarted on her Insulin Pump Novolog at 1.6 units per hour Anion Gap has closed and she is asking for eggs and medrano Her presenting complaints of dizziness and vomiting have resolved She has 2 more vials of her Novolog Insulin for her pump and she will continue it at her set rate of 1.6 units per hour She stated that she had an Classroom Technology Coach in [place] who monitors her blood glucose remotely and with whom she has follow up appointment in April 2018 and I have asked her to follow up in the next 7 days She stated that Classroom Technology Coach has not placed her on Statin or ACEI/ARB She is stable for discharge Upon FULL ROS NO dysphagia/odynopahgia NO soreness in throat NO cough NO sinus/nasal congestion NO fever/chills NO muscle aches/pains NO joint pain NO chest pain/palpations NO SOB NO abdominal pain NO n/v/d/c NO burning pain with urination NO [place] NO lightheadedness/dizziness NO paresthesias Exam: General: AAOX3, NAD HEENT: NCA, EOMI, PERRLA, NO cervical/supraclavicular/submandibular lymphadenopathy, NO pharyngeal erythema/exudate, Nasal Turbinates are nonerythematous/nonedematous, Oral Mucosa is moist Cardio: NS1 and NS2, NO M/R/G Resp: CTA B/L, NO R/R/W GI: BSx4, Soft, NT, NO HSM, NO guarding/rebound tenderness Ext: Pulses are strong and equal, Capillary Refill is 2 seconds, NO edema Neuro: CN II through XII are grossly intact Assessments: 1). DKA with Hx DM 1 The following instructions were explained to the patient and a copy of these instructions will be provided to her upon discharge: 1). Continue your Insulin Pump at rate instructed by your Classroom Technology Coach. 2). Because of your episode of DKA, please make sure that you schedule an appointment with your Classroom Technology Coach in the next 7 days and also discuss with the Classroom Technology Coach about placing you on medication to help protect your kidneys and your blood vessels from your diabetes. 3). Please take care and be well. Oneal Lara D.O. Objective - Vital Signs/Intake and Output Vital Signs (last 24 hours): Temp Pulse Resp BP Pulse Ox 98.1 F 89 17 84/27 L 97 04/12/18 06:00 04/12/18 04:00 04/12/18 04:00 04/12/18 03:56 04/12/18 04:00 Intake and Output: 04/12/18 04/12/18 06:59 18:59 Intake Total 480 Output Total 900 Balance -420 - Labs Labs: 04/12/18 05:29 04/12/18 05:29
[2018-04-12 11:48] VITALS: BP 105/53; PULSE 119
[2018-04-12 12:03] VITALS: TEMP 97.6; O2SAT 98
--- NOTE | 2018-04-12 19:54 | CP.PCM.DIS ---
Provider - Provider Date of Admission: 04/11/18 18:30 Attending physician: Brian Guidry MD Primary care physician: Dr. Guidry Consults: ICU Time Spent in preparation of Discharge (in minutes): 40 Hospital Course - Lab Results Lab Results: Micro Results 04/11/18 16:26 Urine,Clean Catch Urine Culture - Final Gram Positive Cocci Most Recent Lab Values WBC 12.5 K/uL (4.8-10.8) H 04/12/18 05:29 RBC 3.87 Mil/uL (3.80-5.20) 04/12/18 05:29 Hgb 12.2 g/dL (11.0-16.0) D 04/12/18 05:29 Hct 35.2 % (34.0-47.0) 04/12/18 05:29 MCV 91.0 fL (81.0-99.0) 04/12/18 05:29 MCH 31.5 pg (27.0-31.0) H 04/12/18 05:29 MCHC 34.7 g/dL (33.0-37.0) 04/12/18 05:29 RDW 13.0 % (11.5-14.5) 04/12/18 05:29 Plt Count 263 K/uL (130-400) 04/12/18 05:29 MPV 7.9 fL (7.2-11.7) 04/12/18 05:29 Neut % (Auto) 65.4 % (50.0-75.0) 04/12/18 05:29 Lymph % (Auto) 22.4 % (20.0-40.0) 04/12/18 05:29 [place] % (Auto) 11.2 % (0.0-10.0) H 04/12/18 05:29 Eos % (Auto) 0.4 % (0.0-4.0) 04/12/18 05:29 Baso % (Auto) 0.6 % (0.0-2.0) 04/12/18 05:29 Neut # (Auto) 8.2 K/uL (1.8-7.0) H 04/12/18 05:29 Lymph # (Auto) 2.8 K/uL (1.0-4.3) 04/12/18 05:29 [place] # (Auto) 1.4 K/uL (0.0-0.8) H 04/12/18 05:29 Eos # (Auto) 0.1 K/uL (0.0-0.7) 04/12/18 05:29 Baso # (Auto) 0.1 K/uL (0.0-0.2) 04/12/18 05:29 Neutrophils % (Manual) 93 % (50-75) H 04/11/18 16:26 Lymphocytes % (Manual) 6 % (20-40) L 04/11/18 16:26 Monocytes % (Manual) 1 % (0-10) 04/11/18 16:26 Platelet Estimate Normal (NORMAL) 04/11/18 16:26 pO2 46 mm/Hg (30-55) 04/12/18 05:00 VBG pH 7.30 (7.32-7.43) L 04/12/18 05:00 VBG pCO2 36 mmHg (40-60) L 04/12/18 05:00 VBG HCO3 18.2 mmol/L 04/12/18 05:00 VBG Total CO2 18.8 mmol/L (22-28) L 04/12/18 05:00 VBG O2 Sat (Calc) 84.4 % (40-65) H 04/12/18 05:00 VBG Base Excess -7.9 mmol/L (0.0-2.0) L 04/12/18 05:00 VBG Potassium 3.6 mmol/L (3.6-5.2) 04/12/18 05:00 Sodium 138.0 mmol/l (132-148) 04/12/18 05:00 Chloride 110.0 mmol/L (98-107) H 04/12/18 05:00 Glucose 110 mg/dl (65-105) H 04/12/18 05:00 Lactate 0.7 mmol/L (0.7-2.1) 04/12/18 05:00 Sodium 138 mmol/L (132-148) 04/12/18 05:29 Potassium 3.9 mmol/L (3.6-5.2) 04/12/18 05:29 Chloride 112 mmol/L (98-107) H 04/12/18 05:29 Carbon Dioxide 15 mmol/L (22-30) L 04/12/18 05:29 Anion Gap 15 (10-20) 04/12/18 05:29 BUN 16 mg/dL (7-17) 04/12/18 05:29 Creatinine 0.7 mg/dL (0.7-1.2) 04/12/18 05:29 Est GFR ( Amer) > 60 04/12/18 05:29 Est GFR (Non-Af Amer) > 60 04/12/18 05:29 POC Glucose (mg/dL) 102 mg/dL (65-110) 04/12/18 08:17 Random Glucose 115 mg/dL (65-105) H 04/12/18 05:29 Hemoglobin A1c 8.6 % (4.2-6.5) H 04/12/18 05:29 Calcium 8.0 mg/dl (8.6-10.4) L 04/12/18 05:29 Phosphorus 2.7 mg/dL (2.5-4.5) 04/12/18 05:29 Magnesium 1.9 mg/dL (1.6-2.3) 04/12/18 05:29 Total Bilirubin 1.2 mg/dL (0.2-1.3) 04/12/18 05:29 AST 15 U/L (14-36) 04/12/18 05:29 ALT 26 U/L (9-52) 04/12/18 05:29 Alkaline Phosphatase 57 U/L (38-126) 04/12/18 05:29 Total Protein 5.8 g/dL (6.3-8.3) L 04/12/18 05:29 Albumin 3.1 g/dL (3.5-5.0) L D 04/12/18 05:29 Globulin 2.7 gm/dL (2.2-3.9) 04/12/18 05:29 Albumin/Globulin Ratio 1.2 (1.0-2.1) 04/12/18 05:29 Lipase 36 U/L (23-300) 04/11/18 16:26 Venous Blood Potassium 3.6 mmol/L (3.6-5.2) 04/12/18 05:00 Urine Color Yellow (YELLOW) 04/11/18 16:26 Urine Clarity Hazy (Clear) 04/11/18 16:26 Urine pH 5.0 (5.0-8.0) 04/11/18 16:26 Ur Specific [place] 1.025 (1.003-1.030) 04/11/18 16:26 Urine Protein Negative mg/dL (NEGATIVE) 04/11/18 16:26 Urine Glucose (UA) 3+ mg/dL (Normal) H 04/11/18 16:26 Urine Ketones 2+ mg/dL (NEGATIVE) H 04/11/18 16:26 Urine Blood Negative (NEGATIVE) 04/11/18 16:26 Urine Nitrate Negative (NEGATIVE) 04/11/18 16:26 Urine Bilirubin Negative (NEGATIVE) 04/11/18 16:26 Urine Urobilinogen Normal mg/dL (0.2-1.0) 04/11/18 16:26 Ur Leukocyte Esterase Neg Aditya/uL (Negative) 04/11/18 16:26 Urine WBC (Auto) 2 /hpf (0-5) 04/11/18 16:26 Urine RBC (Auto) 1 /hpf (0-3) 04/11/18 16:26 Ur Squamous Epith Cells 9 /hpf (0-5) H 04/11/18 16:26 Urine HCG, Qual Negative (NEGATIVE) 04/11/18 16:26 B-Hydroxybutyrate 4.10 mM (0.02-0.27) H 04/11/18 16:26 - Hospital Course Hospital Course: Hospitalist Discharge Note Patient was seen and examined at 8:00 AM 04/12/18 ICU Bed 17 27 year old female with history of DM 1 on insulin pump for which she ran out of her insulin was admitted for DKA on night of 04/11/18. She was treated with Insulin Drip and IVF in the ICU and then started on her Insulin Pump Novolog at 1.6 units per hour Anion Gap has closed and she is asking for eggs and medrano Her presenting complaints of dizziness and vomiting have resolved She has 2 more vials of her Novolog Insulin for her pump and she will continue it at her set rate of 1.6 units per hour She stated that she had an Internal Specialist in [place] who monitors her blood glucose remotely and with whom she has follow up appointment in April 2018 and I have asked her to follow up in the next 7 days She stated that Internal Specialist has not placed her on Statin or ACEI/ARB She is stable for discharge Please see full medical record for full details Upon FULL ROS NO dysphagia/odynopahgia NO soreness in throat NO cough NO sinus/nasal congestion NO fever/chills NO muscle aches/pains NO joint pain NO chest pain/palpations NO SOB NO abdominal pain NO n/v/d/c NO burning pain with urination NO [place] NO lightheadedness/dizziness NO paresthesias Exam: General: AAOX3, NAD HEENT: NCA, EOMI, PERRLA, NO cervical/supraclavicular/submandibular lymphadenopathy, NO pharyngeal erythema/exudate, Nasal Turbinates are nonerythematous/nonedematous, Oral Mucosa is moist Cardio: NS1 and NS2, NO M/R/G Resp: CTA B/L, NO R/R/W GI: BSx4, Soft, NT, NO HSM, NO guarding/rebound tenderness Ext: Pulses are strong and equal, Capillary Refill is 2 seconds, NO edema Neuro: CN II through XII are grossly intact Assessments: 1). DKA with Hx DM 1 The following instructions were explained to the patient and a copy of these instructions will be provided to her upon discharge: 1). Continue your Insulin Pump at rate instructed by your Internal Specialist. 2). Because of your episode of DKA, please make sure that you schedule an appointment with your Internal Specialist in the next 7 days and also discuss with the Internal Specialist about placing you on medication to help protect your kidneys and your blood vessels from your diabetes. 3). Please take care and be well. Oneal Lara D.O. Discharge Exam - Head Exam Head Exam: ATRAUMATIC, NORMAL INSPECTION, NORMOCEPHALIC Discharge Plan - Follow Up Plan Condition: CRITICAL Disposition: HOME/ ROUTINE Instructions: Diabetic Ketoacidosis (DC) Additional Instructions: The following instructions were explained to the patient and a copy of these instructions will be provided to her upon discharge: 1). Continue your Insulin Pump at rate instructed by your Internal Specialist. 2). Because of your episode of DKA, please make sure that you schedule an appointment with your Internal Specialist in the next 7 days and also discuss with the Internal Specialist about placing you on medication to help protect your kidneys and your blood vessels from your diabetes. 3). Please take care and be well.
== END 2018-04-12 11:35 | disposition home or self-care (01) | DRG 639 ==
LOC: C.ER 15:37 → C.9E 18:30 → C.9I 20:46 → C.6T 04-12 10:49
PROVIDERS: ADMIT Internal Medicine; ATTEND Internal Medicine
DX: E10.10 Type 1 diabetes mellitus with ketoacidosis without coma (principal); Z96.41 Presence of insulin pump (external) (internal)